=== PATIENT | female | born 1980 | race Caucasian/White ===

== ENCOUNTER 2017-11-22 01:26 | Emergency (ER) | payer MEDICAID ==
[~2017-11-22] VITALS: Ht 172.7 cm; Wt 106.6 kg
[~2017-11-22 01:26] MED LIST: FER300 PO; FLO4 PO; ROC1PM IV
[2017-11-22 01:31] VITALS: Ht 172.7 cm; Wt 106.6 kg
[2017-11-22 03:39] VITALS: BP 151/89
== END 2017-11-22 03:39 | disposition home or self-care (01) ==
LOC: ED 01:26
DX: L03.115 Cellulitis of right lower limb (principal)
CPT/HCPCS: J1885